=== PATIENT | female | born 1990 | race Caucasian/White ===

== ENCOUNTER 2020-07-13 06:25 | Day surgery (SDC) | payer BC ==
[2020-07-10 12:29] LABS: BASOPHILS 0.2 % (0-2); EOSINOPHILS 1.1 % (0-7); HEMATOCRIT 42.6 % (36.0-48.0); HEMOGLOBIN 14.1 g/dL (12-16); IMMATURE GRANULOCYTES 0.2 % (0-5); LYMPHOCYTE ABS# 1.75 10x3/uL (1.18-3.74); LYMPHOCYTES 19.5 % (15-50); MCH 31.3 pg (26.0-34.0); MCHC 33.1 g/dL (31.0-37.0); MCV 94.7 fL (80.0-100.0); MEAN PLATELET VOLUME 9.2 fL (7.4-10.4); MONOCYTES 3.7 % (2-11); NEUTROPHIL ABS# 6.76 10x3/uL (1.56-6.13); NEUTROPHILS 75.3 % (40-80); RDW 12.4 % (11.5-14.5)
[2020-07-10 12:35] LABS: PLATELET COUNT 260 10x3/uL (130-400)
[~2020-07-13] VITALS: Ht 165.1 cm; Wt 64.9 kg
--- NOTE | ~2020-07-13 | OP ---
PATIENT NAME: CHADD JEFFREY MEDICAL RECORD: [id number] :89 LOCATION:D.OPS ADMISSION DATE: SURGEON: NANY SHEPARD DO DATE OF OPERATION: 07/13/2020 PREOPERATIVE DIAGNOSES: Pelvic pain, ovarian cyst. POSTOPERATIVE DIAGNOSES: Pelvic pain, ovarian cyst. PRIMARY SURGEON: Nany Shepard DO ANESTHESIA: General endotracheal tube intubation. PROCEDURES: Diagnostic laparoscopy. FINDINGS: Grossly normal uterus, bilateral fallopian tubes and bilateral ovaries. No large cysts noted. Enlarge varicose pelvic vessels. Grossly normal abdominal anatomy. SPECIMEN: None. ESTIMATED BLOOD LOSS: 20 cc. IV FLUIDS: Per anesthesia. URINE OUTPUT: 200 cc clear yellow urine INFECTION PROPHYLAXIS: 1 gram Ancef. COMPLICATIONS: None. Prior to procedure, risks of surgery including bleeding, pain, infection, damage to surrounding structures such as bladder, bowel and neurovascular structures was discussed as well as postoperative pain, scar tissue, and VTE associated with tobacco use. The patient expressed understanding and desired to proceed with the procedure and desired to have surgical management of ovarian cyst and pelvic pain. Consent signed in the office and preoperatively. DESCRIPTION OF PROCEDURE: The patient was taken to the operating room where general anesthesia was administered and found to be adequate. She was prepped and draped in normal sterile fashion in lithotomy position with Joseph stirrups. A Archer was placed. Speculum was placed in the vagina and uterus sounded. Cervix dilated to accommodate HUMI manipulator placed without issue. Attention was then turned to the abdomen. Marcaine injected into all port sites prior to placement of trocars, first port site except umbilical, incision made with scalpel. The umbilical and trocar and camera were placed with direct entry technique. Some omentum attached to the trocar, but no trauma noted below. Second port placed in the right lower quadrant. A 5-mm port placed in the right lower quadrant and umbilical port visualized, some omentum grasped with blunt graspers and removed without incident. No bleeding noted on the omentum or below and last a 5-mm port placed on the left lower quadrant. After placement of first trocar, pneumoperitoneum created and no trauma noted at the site of placement. Uterus grossly normal, but initially HUMI retractor was not working in manipulating the uterus. Attention then turned to vagina, balloon was then adequately filled up, so replaced and balloon filled up completely and then able OPERATIVE REPORT [id number] CHADD JEFFREY to manipulate uterus easily. Gloves switched and turned to the abdomen, grossly normal uterus, grossly normal fallopian tubes, some increased vascularity and varicosities. There was noted to have pelvic vessels. No large cyst noted. Pictures taken of small simple cyst 1-2 cm noted on the right side. A J hook used to open a small incision and drainage of fluid, but very minimal, less than 10 cc fluids are removed. No other cyst noted. No endometrial implants noted. Dr. Araiza also assessed visually pelvis and no abnormalities or cysts noted beyond the varicosity of pelvic vessels. Pelvis irrigated with normal saline. No bleeding noted at the site of cyst puncture, right side times 2 and pneumoperitoneum deflated and the ports were removed without incident and skin closed in subcuticular fashion with 3-0 Monocryl and Dermabond. The patient was then awakened and taken to recovery room. All lap, sponge, needle counts and instrument counts were correct times 2. Prior to moving to recovery room, HUMI retractor was also removed. TRANSINT:[id number] Voice Confirmation ID: [id number] DOCUMENT ID: [id number] NANY SHEPARD DO CC: [id number] DICTATION DATE: 07/15/20 1210 [employer]SEM[employer]ER: 07/15/20 1431 [facility] 07/13/20 [facility] [address] [place] [address]
[~2020-07-13 06:25] MED LIST: ESTARYLLA
[2020-07-13 07:36] VITALS: BP 99/69; Ht 165.1 cm; Wt 64.9 kg
[2020-07-13 07:47] LABS: HCG URINE NEGATIVE (NEGATIVE)
--- NOTE | 2020-07-13 14:49 | NUR ---
1400 PT VOIDED AND STATED SHE SARTED HER PERIOD. PT MORE AWAKE AND DENIES ANY PAIN. ABDOMEN SOFT AND INSTRUCTIONS GIVEN.
== END 2020-07-13 14:20 | disposition home or self-care (01) ==
LOC: D.OPS 06:25
PROVIDERS: ATTEND Obstetrics & Gynecology
DX: R10.2 Pelvic and perineal pain (principal); N83.201 Unspecified ovarian cyst, right side; B37.3 Candidiasis of vulva and vagina